=== PATIENT | female | born 1940 | race Caucasian/White ===

== ENCOUNTER → 2018-06-26 | Day surgery (SDC) | payer MEDICARE ==
[~2018-06-26] VITALS: Wt 36.3 kg
[~2018-06-26] MED LIST: LIPITOR20 MG PO; MILK OF MA400 MG/5 M PO; NIFEDIPINE ER60 M1 PO; TOPROL XL25 MG PO; VITAMIN D-32000 UNI1 PO
--- NOTE | ~2018-06-26 | O ---
[place], [place] OPERATIVE NOTE NAME: RAFY MCNAIR UNIT #: [id number] ROOM: DOCTOR: ALEXANDRA HARDIN MD BIRTHDATE: [birth year] DOS: 06/26/2018 INDICATIONS: A 78-year-old was presented from assisted with multiple problems, among which protein-calorie malnutrition, dysphagia and wasted failure to thrive, bedridden. SOCIAL HISTORY: Passive smoker. Nonalcohol consumer. PAST SURGICAL HISTORY: Hip tubal ligation, hysterectomy. MEDICATION ALLERGIES: List have been reviewed. PROCEDURE: Today's procedure part of investigation is panendoscopy plus PEG tube placement. PREMEDICATION: Propofol. SCOPE: Olympus forward-viewing gastroscope Q10 video. REPORT: After putting the patient in supine position, scope was introduced. Thereafter under direct visualization, advanced through the length of esophagus without difficulty into gastric pouch. Small hiatal hernia was noticed. Gastritis of an atrophic type was noticed. Duodenal bulb, second and third part checked. No obstruction or pathology. No ulcerations. Intra-abdominal wall aseptically prepped and best transillumination line selected, which is ending up in subxiphoid left leniency. A 2 mL of Xylocaine was injected. Trocar was introduced in the same spot. Guidewire was advanced through the center of which grasped with forceps orally extracted. Gastrostomy tube [place] 20 was anchored to it. Again, the PEG device was tinged with Neosporin ointment and orally pulled. Recovered from the surface of the abdomen. Anchors placed, patency checked, tolerated the procedure well. Ready to be utilized. Direction has been given on the order sheet. Thank you very much indeed for your kind referral. Case has been discussed with daughters. They are happy with the results. The patient is going to be discharged from the hospital today back to the assisted. Thank you very much again. [place], [place] OPERATIVE NOTE NAME: RAFY MCNAIR UNIT #: [id number] ROOM: DOCTOR: ALEXANDRA HARDIN MD BIRTHDATE: [birth year] ALEXANDRA HARDIN MD CM:OPRECORD:OPERATIVE NOTE [id number] ALEXANDRA HARDIN MD 06/26/184 interface
[2018-06-26 14:51] VITALS: BP 120/82
[2018-06-26 16:07] VITALS: BP 80/54
[2018-06-26 16:22] VITALS: BP 101/71
[2018-06-26 16:37] VITALS: BP 129/80
== END | disposition home or self-care (01) ==
LOC: SDC 10:05
DX: E46 Unspecified protein-calorie malnutrition (principal); R13.19 Other dysphagia; I10 Essential (primary) hypertension; E78.5 Hyperlipidemia, unspecified; H40.9 Unspecified glaucoma; F03.90 Unspecified dementia, unspecified severity, without behavioral disturbance, psychotic disturbance, mood disturbance, and anxiety; N19 Unspecified kidney failure; Z90.710 Acquired absence of both cervix and uterus; Z98.51 Tubal ligation status; Z86.73 Personal history of transient ischemic attack (TIA), and cerebral infarction without residual deficits; Z98.890 Other specified postprocedural states; Z87.891 Personal history of nicotine dependence; Z79.899 Other long term (current) drug therapy